=== PATIENT | female | born 1970 | race Caucasian/White ===

== ENCOUNTER 2016-06-15 10:36 | Emergency (ER) | payer SELFPAY ==
[~2016-06-15] VITALS: Ht 167.6 cm; Wt 80.0 kg
[~2016-06-15 10:36] MED LIST: DOXY100T OR; GLUCTAB PO; OXYC-360 PO; SULF1TAB47 PO
--- NOTE | 2016-06-15 10:54 | PD ---
HPI . Cold symptoms Chief Complaint: Cough Time Seen by Provider: 10:44 Travel History International Travel<30 days: No Contact w/Intl Traveler<30days: No History of Present Illness HPI Patient presents with about a 2 day history of cough with no fever or sputum production. She states that she feels weak and fatigued. She complains of mild nasal congestion and sore throat. She has not tried any fdre-lxp-ojwzldh medications for her symptoms. PFSH Past Medical History Diabetes: Yes Tubal Ligation: Yes Past Surgical History Section: Yes (X3) Social History Alcohol Use: Yes (OCCASSIONAL) Tobacco Use: No Substance Use: No Allergies-Medications (Allergen,Severity, Reaction): Coded Allergies: No Known Allergies (Unverified , 05/26/12) Reported Meds & Prescriptions Reported Meds & Active Scripts Active Percocet (Oxycodone/Acetaminophen) 5 Mg/325 Mg Tab 1-2 Tab PO Q4-6HPRN FOR PAIN Doxycycline Hyclate 100 Mg Tab 100 Mg OR BID Bactrim Ds (Trimethoprim/Sulfamethoxazole) Tab 1 Tab PO BID Glucophage (Metformin HCl) 500 Mg Tab 500 Mg PO BID 30 Days Review of Systems Except as stated in HPI: all other systems reviewed are Neg General / Constitutional: Positive: Other (weakness and fatigue), No: Fever, Chills Eyes: No: Drainage, Redness HENT: Positive: Sore Throat, Congestion Cardiovascular: Positive: Chest Pain or Discomfort Respiratory: Positive: Cough, Shortness of Breath Gastrointestinal: No: Nausea, Vomiting, Diarrhea Musculoskeletal: Positive: Weakness Neurologic: Positive: Paresthesia (diabetic neuropathy) Physical Exam Narrative GENERAL: This is a healthy-appearing 45-year-old female in no distress. SKIN: Warm and dry. HEAD: Atraumatic. Normocephalic. EYES: Pupils equal and round. ENT: No nasal bleeding or discharge. Mucous membranes pink and moist. Oropharynx has no erythema, tonsillar enlargement, exudate NECK: Trachea midline. Neck is supple with no cervical lymphadenopathy. CARDIOVASCULAR: Regular rate and rhythm. Heart sounds are normal. RESPIRATORY: No accessory muscle use. Lungs are clear with full air movement throughout. Patient is able to speak full sentences at a time without taking a breath. GASTROINTESTINAL: Abdomen soft, non-tender, nondistended. MUSCULOSKELETAL: No obvious deformities. No edema. NEUROLOGICAL: Awake and alert. No obvious cranial nerve deficits. Motor grossly within normal limits. Normal speech. PSYCHIATRIC: Appropriate mood and affect; insight and judgment normal. MDM Medical Decision Making Medical Screen Exam Complete: Yes Emergency Medical Condition: Yes Differential Diagnosis Differential diagnosis includes but is not limited to influenza, upper respiratory infection, bronchitis, pneumonia Narrative Course This is a healthy-appearing 45-year-old woman who presents with cold symptoms. She has no physical exam findings. He is obviously not short winded. Diagnosis Primary Impression: URI (upper respiratory infection) Qualified Code: J06.9 - Viral upper respiratory tract infection Patient Instructions: Cold Symptoms (ED) Additional Instructions: I recommend the use of a Neti Pot. You may use a nasal spray such as Afrin for up to 3 days. You may take an yohr-wgt-[id number] antihistamine such as Zyrtec or Claritin as needed for runny secretions. You may take pseudoephedrine as needed for congestion. You will need to sign for this at the pharmacy. You may take a cough syrup such as Delsym as needed for cough. Disposition: 01 DISCHARGE HOME Condition: Stable Ivette Lizarraga MD Jun 15, 2016 10:54
[2016-06-15 11:14] VITALS: BP 133/80; PULSE 93; RESP 18; O2SAT 100
[2016-06-15] MEDS ORDERED: METF1000 PO (11:17)
[2016-06-15] MEDS ORDERED: GABA800T PO (11:17)
== END 2016-06-15 11:31 | disposition home or self-care (01) ==
LOC: NEPA 10:36
DX: J06.9 Acute upper respiratory infection, unspecified (principal); E11.9 Type 2 diabetes mellitus without complications
CPT/HCPCS: 99283